=== PATIENT | male | born 1990 | race Two or more races ===

== ENCOUNTER 2021-01-23 05:13 | Emergency (ER) | payer BC, OTHER ==
[~2021-01-23] VITALS: Ht 180.3 cm; Wt 97.5 kg
[~2021-01-23 05:13] MED LIST: [UNRECOGNIZED DRUG - CODE] PO; [UNRECOGNIZED DRUG - OTHER] PO
--- NOTE | 2021-01-23 05:38 | NUR ---
Dr Singleton into eval patient.
--- NOTE | 2021-01-23 06:09 | NUR ---
Patient discharged to home in stable condition. Written and verbal after care instructions given. Patient verbalizes understanding of instructions. Stressed follow up or return to ER for worsening s/s.
[2021-01-23 06:13] VITALS: BP 143/89
== END 2021-01-23 06:20 | disposition home or self-care (01) ==
LOC: ER 05:18
DX: I47.1 Supraventricular tachycardia (principal)
CPT/HCPCS: 93005; A4663

== ENCOUNTER 2021-02-07 15:47 | Emergency (ER) | payer BC ==
[~2021-02-07] VITALS: Ht 180.3 cm; Wt 97.5 kg
[2021-02-07] MEDS ORDERED: IV NORMAL SALINE 1000 ML BAG IV ONE (16:00)
[2021-02-07] MEDS ORDERED: ADENOSINE 6 MG/2 ML SYR IV ONE ×3 (16:00→16:14)
--- NOTE | 2021-02-07 16:05 | NUR ---
Pt's HR 188 (SVT), pt was given Adenosine 6mg rapid IVP as per protocol with ERMD at bedside which was not effective. Pt was then given Adenosine 12mg rapid IVP which was effective (HR 118 post adm). Pt was on cont surveillance monitor with myself, Aidan Sparrow LVN and BAKARI at bedside.
[2021-02-07 16:19] LABS: HEMATOCRIT 50.2 % (36.7-47.1); MEAN CORPUSCULAR HEMOGLOBIN 32.4 uug (23.8-33.4); MEAN CORPUSCULAR VOLUME 93.3 fL (73.0-96.2); PLATELET COUNT (AUTO) 198 K/uL (152-348)
[2021-02-07 16:23] LABS: CREATININE 0.9 mg/dL (0.6-1.3); POTASSIUM 3.9 mmol/L (3.5-5.1)
[2021-02-07] MEDS ORDERED: DILTIAZEM HCL CD 120 MG CAP.SR.24H PO ONE ×3 (16:30→17:11)
[2021-02-07] MEDS ORDERED: DILTIAZEM HCL SR 60 MG CAP.SR.12H PO ONE (16:30)
--- NOTE | 2021-02-07 17:00 | NUR ---
Patient is resting comfortably in bed with eyes closed
[2021-02-07 17:04] VITALS: BP 154/96
[2021-02-07 17:35] LABS: *AMPHETAMINE, URINE NEGATIVE (NEGATIVE); *CANNABINOID, URINE NEGATIVE (NEGATIVE); *COCCAINE, URINE NEGATIVE (NEGATIVE); *OPIATE, URINE NEGATIVE (NEGATIVE); *PHENCYCLIDINE SCREEN,URINE NEGATIVE (NEGATIVE)
[2021-02-07] MEDS ORDERED: DILT-32 PO (17:55)
[2021-02-07] MEDS ORDERED: METO-356 PO (17:56)
[2021-02-07] MEDS ORDERED: PROP20TA7 PO (17:56)
== END 2021-02-07 18:13 | disposition home or self-care (01) ==
LOC: ER 15:47
DX: I47.1 Supraventricular tachycardia (principal); R00.2 Palpitations; F17.291 Nicotine dependence, other tobacco product, in remission
CPT/HCPCS: 36415; 71045; 80048; 80307; 84484; 85025; 93005; 93307; 96361; 96374; 99291; J0153 ×2; 70030-TC; A4663; J7030

== ENCOUNTER 2021-10-09 21:12 | Emergency (ER) | payer BC ==
[~2021-10-09 21:12] MED LIST changes: +METO-356 PO; +PROP20TA7 PO; -[UNRECOGNIZED DRUG - CODE] PO; -[UNRECOGNIZED DRUG - OTHER] PO
--- NOTE | 2021-10-09 23:00 | NUR ---
Patient was just called to be triaged at this time due to short staff and ER inudated with patient. But patient was not present in the [facility] room or outside of ER.
--- NOTE | 2021-10-09 23:30 | NUR ---
Patient was called to be triaged but was not present in the waiting room or outside of ER.
--- NOTE | 2021-10-10 00:01 | NUR ---
Patient was called to be triaged but was not present in the waiting room or outside of ER. Patient was not seen by ERMD or triaged.
== END 2021-10-10 00:01 | disposition left against medical advice (07) ==
LOC: ER 21:30
DX: Z53.21 Procedure and treatment not carried out due to patient leaving prior to being seen by health care provider (principal)